=== PATIENT | male | born 1950 | race Caucasian/White ===

== ENCOUNTER 2021-03-22 19:38 | Emergency (ER) | payer BC ==
--- NOTE | 2021-03-22 20:19 | ED Physician Documentation ---
PD HPI OPHTHO - Stated complaint Stated Complaint: ALT VISION - Chief complaint Chief Complaint: Heent - History obtained from History obtained from: Patient - Additional information Additional information: He was in his usual state of health when he started to notice a problem with his vision. Happened about 2 hours ago. He felt like he was looking into the sun with a bright spot in both eyes with a reticular jagged very colorful pattern on the periphery of this. That happened for about 20 minutes and went away with her feeling of retro-orbital pressure and fatigue afterward. He had a similar e pisode about 20 years ago. Review of Systems Constitutional: denies: Fever, Chills Eyes: reports: Photophobia. denies: Loss of vision, Decreased vision Ears: denies: Loss of hearing, Ear pain Nose: denies: Rhinorrhea / runny nose, Congestion PD PAST MEDICAL HISTORY - Present Medications Home Medications: Ambulatory Orders Medication Instructions Recorded Confirmed Aspirin [[place] Aspirin] 81 mg PO DAILY 03/22/21 03/22/21 Atorvastatin Calcium [Lipitor] 80 mg PO HS 03/22/21 03/22/21 Clopidogrel [Plavix] 75 mg PO DAILY 03/22/21 03/22/21 Famotidine [Pepcid] 40 mg PO DAILY 03/22/21 03/22/21 Lisinopril [Zestril] 10 mg PO DAILY 03/22/21 03/22/21 - Allergies Allergies/Adverse Reactions: Allergies Allergy/AdvReac Type Severity Reaction Status Date / Time No Known Drug Allergies Allergy Verified 03/22/21 19:42 PD ED PE NORMAL - Vitals Vital signs reviewed: Yes - General General: Alert and oriented X 3, No acute distress - HEENT HEENT: PERRL, EOMI - Neck Neck: Supple, no meningeal sign, No bony TTP - Neuro Neuro: Alert and oriented X 3, 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 I showed him some pictures of typical [place] on the Internet and he agreed that what he was experiencing is consistent with that. Departure - Departure Disposition: 01 Home, Self Care Clinical Impression: Ophthalmic migraine Condition: Good Record reviewed to determine appropriate education?: Yes Instructions: ED Headache Migraine Comments: Follow-up with your primary care physician for further evaluation and treatment. Return for new or worsening symptoms.
[2021-03-22 20:26] VITALS: BP 128/88
== END 2021-03-22 20:30 | disposition home or self-care (01) ==
LOC: ED 19:38
DX: G43.B0 Ophthalmoplegic migraine, not intractable (principal); Z79.02 Long term (current) use of antithrombotics/antiplatelets
CPT/HCPCS: 99281; 99283